=== PATIENT | female | born 1980 ===

== ENCOUNTER 2017-07-13 08:23 | Emergency (ER) | payer MEDICAID, OTHER ==
[2017-07-13 08:24] VITALS: BMI 29.9
[2017-07-13 09:00] VITALS: TEMP 98.6
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
[2017-07-13 10:20] VITALS: BP 123/82; PULSE 76; RESP 17; O2SAT 97
--- NOTE | 2017-07-13 10:33 | RAD ---
Cervical spine four views History: Injury. Comparison: None available. Findings: Reversal of the normal cervical lordosis. Cervical spine is visualized from C1 through C7. No prevertebral soft tissue swelling. No evidence for acute displaced fracture. Dens is grossly preserved. Impression: Negative acute. If pain persists, consider MRI.
--- NOTE | 2017-07-13 10:48 | RAD ---
Right shoulder three views History: Shoulder pain. Injury. Comparison: None available. Findings: Right glenohumeral joint space appears preserved. Suggestion of a 5 millimeter bone island in the proximal right humerus. No evidence of acute displaced fracture. Question minimal prominence/minimal diastases of the right acromioclavicular interval measuring up to 6 millimeters. Clinical correlation. Impression: Right glenohumeral joint space appears preserved. Suggestion of a 5 millimeter bone island in the proximal right humerus. No evidence of acute displaced fracture. Question minimal prominence/minimal diastases of the right acromioclavicular interval measuring up to 6 millimeters. Clinical correlation. If pain persists, consider MRI.
== END 2017-07-13 10:19 | disposition home or self-care (01) ==
LOC: C.ER 08:23
DX: S16.1XXA Strain of muscle, fascia and tendon at neck level, initial encounter (principal); S43.401A Unspecified sprain of right shoulder joint, initial encounter; V89.2XXA Person injured in unspecified motor-vehicle accident, traffic, initial encounter; Y92.488 Other paved roadways as the place of occurrence of the external cause